=== PATIENT | female | born 1950 | race African-American/Black ===

== ENCOUNTER 2017-04-15 00:03 | Observation (INO) | payer MEDICARE ==
[2017-04-15 01:14] LABS: Troponin I 0.032 ng/mL (< 0.028)
[2017-04-15] MEDS ORDERED: Ondansetron HCl/PF 4 MG/2 ML Vial IVP PRN (02:52)
[2017-04-15] MEDS ORDERED: Calcium Carbonate 500 MG ChewTAB PO PRN (02:52)
[2017-04-15] MEDS ORDERED: Dextrose 5% in Water 1,000 ML IV PRN (02:52)
[2017-04-15] MEDS ORDERED: Acetaminophen 325 MG TAB PO PRN (02:52)
[2017-04-15] MEDS ORDERED: Dextrose 50% Abboject 50 ML SYRINGE SLOW IVP PRN (02:52)
[2017-04-15 03:43] VITALS: BMI 28.5
[2017-04-15] MEDS: Sodium Chloride 0.9% 1,000 ML IV SCH ×2 (03:48→20:46)
[2017-04-15 03:53] LABS: Anion Gap 12 mmol/L (10-20); BUN (Urea Nitrogen) 22 mg/dL (9.8-20.1); Calc. Creatinine Clearance 69 mL/min (70-130); Carbon Dioxide 25 mmol/L (23-31); Chloride 105 mmol/L (98-107); Estimated GFR-MDRD 69
[2017-04-15 03:57] LABS: Troponin I 0.035 ng/mL (< 0.028)
[2017-04-15] MEDS: HumaLOG 300 UNITS/3 ML VIAL SC PRN ×3 (06:14→20:51)
--- NOTE | 2017-04-15 06:20 | HP ---
CHIEF COMPLAINT: History of fall and hyperglycemia. HISTORY OF PRESENT ILLNESS: This is a 66-year-old pleasant lady who came into [facility] after a f all, because she had no electricity in her house. At the time of my interview, she says that she tr ied to get up on bias binding cutter to go to [facility] and because she could not see, she tripped and fell. She had another fall this evening and that is why she felt unsafe in her house and hence came into the hospital for further evaluation and treatment. Initially, the patient had a glucose of 44 1, which was treated with insulin at the [facility] and glucose fell to 290 in our hospital, right now it is 130. The patient does say that she has not been taking her blood pressure pills, her car diac pills, her sugar pills, and insulin for a long time because she fed up with [facility] they keep adjusting the medications without exactly talking to her and she says that the medicat ions actually make her feel bad. The patient lives alone and her friend visits with her on and off who helps her with day to day activities. The patient denies any fever, chills, shortness of breath , some mild chest pressure in the backside of the right breast, may be possibly because of the fall. She denies any fever, chills, nausea, or vomiting. PAST MEDICAL HISTORY: Significant for multiple falls, recent discharge from our hospital in 10/2016 after an extensive workup with a negative stress test, negative MRI, ejection fraction of 45%. 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 PAST SURGICAL HISTORY: Quadruple bypass in 09/2014, hysterectomy. PSYCHIATRIC HISTORY: Includes anxiety. SOCIAL HISTORY: Lives alone. Like mentioned above, has friend who comes and visits, has a child, b ut says that the child hardly visits; however, she denies any drug, tobacco, or alcohol use. FAMILY HISTORY: Negative for diabetes or hypertension. ALLERGIES: HYDROCODONE, METFORMIN, and NORCO. CURRENT MEDICATIONS: She takes none. REVIEW OF SYSTEMS: Significant for mild chest pressure and chronic left-sided weakness. Otherwise, no fever, no chills, no headache, no appetite, no hearing loss, no latencies. No cough, no shortne ss of breath. No diarrhea, dysuria, or polyuria. No memory or mood changes. No neck pain. PHYSICAL EXAMINATION: VITAL SIGNS: Patient's blood pressure is 140/68, pulse is 78, afebrile, respirations 18. GENERAL: Patient is lying in bed, right now in no apparent distress. HEENT: Atraumatic and normocephalic. Pupils equally round, react to light. Extraocular movements are intact. Mucous membranes are moist. NECK: Supple. No JVD. CHEST: Breath sounds. There are no rales or rhonchi. HEART: S1, S2. No murmurs or gallops. ABDOMEN: Soft, obese. EXTREMITIES: No cyanosis, clubbing, or edema. Distal pulses present. NEUROLOGIC: No cranial nerve deficits. Motor strength in the left arm is 4/5, right arm is 5/5, le ft lower extremities 4/5, and right lower extremities 5/5. SKIN: Warm to touch. LABORATORY DATA: WBC count is 5, hemoglobin is 12, potassium is 4.8, creatinine is 0.9, BUN is 21. LDL is 109. Urine shows 4+ bacteria, but no WBCs, negative nitrites and leukocyte esterase. ASSESSMENT AND PLAN: 1. Multiple falls because of lack of electricity and patient feeling unsafe. Patient will be admit dhara for observation. We will involve our experts of case management team in placing this patient so that she is in a safe environment. Meanwhile, we will do physical therapy, occupational therapy fo r this patient. 2. Dehydration secondary to hyperglycemia, secondary to noncompliance with medications for diabetes . We will do IV fluids. Glucose has already come down, we will do insulin sliding scale. We will optimize medications for glucose control with oral hypoglycemics this hospital stay. 3. Coronary artery disease, status post coronary artery bypass graft. We will put her back on meto prolol and lisinopril. 4. Hypertension. We will monitor that this hospital stay. 5. History of stroke with chronic left-sided hemiparesis, stable. 6. Hyperlipidemia. We will introduce statin therapy with Lipitor. 7. Systolic congestive heart failure, compensated with ejection fraction of 45%, stable. 8. Dehydration. We will gently hydrate the patient. I will work with the case management and furt her placing this patient in a safe environment. 9. Sequential compression devices for deep venous thrombosis prophylaxis.
[2017-04-15] MEDS: Docusate 100 MG CAP PO SCH ×2 (08:32→20:44)
[2017-04-15] MEDS ORDERED: Lisinopril 2.5 MG TAB PO SCH (09:00)
[2017-04-15] MEDS ORDERED: Famotidine 20 MG TAB PO SCH (09:00)
[2017-04-15] MEDS ORDERED: Metoprolol Tartrate 25 MG TAB PO SCH (09:00)
--- NOTE | 2017-04-15 10:04 | RAD ---
PORTABLE CHEST 1 VIEW: Date: 04/15/17 Time: 0809 hours HISTORY: Respiratory distress. FINDINGS: Comparison made with exam of 11/04/16. There are changes of median sternotomy. The heart size is borderline. There is continued elevation o f the right hemidiaphragm. No focal areas of consolidation, pneumothorax, luis alberto pulmonary edema, or pleural effusions are seen. IMPRESSION: No acute process. POS: [facility]
--- OUTSIDE RECORDS SUMMARY | 2017-04-15 10:21 | XMS | Clinical Summary ---
:1950 Author Organization [facility] Hospitalist Address [address] [place] [phone] Phone Care Team Providers Name Role Phone , Primary Care Provider Unavailable Allergies Not on File Current Medications Not on file Active Problems Not on file Social History Tobacco Use Types Packs/Day Years Used Date Never Assessed Sex Assigned at Date Recorded Not on file Last Filed Vital Signs Not on file Plan of Treatment Not on file Results Not on filefrom Last 3 Months
--- NOTE | 2017-04-15 10:29 | CT ---
HISTORY: Fall. Right-sided facial pain. TECHNIQUE: Axial images are obtained with coronal and sagittal reconstructions. FINDINGS: CT face demonstrates the paranasal sinuses to be well aerated. No evidence of a facial fracture is seen. The mandible and maxilla are intact. Bilateral carotid bulb vascular calcifications are seen . IMPRESSION: Unremarkable maxillofacial CT. POS: [facility]
[2017-04-15] MEDS ORDERED: traMADol HCl 50 MG TAB PO PRN (11:49)
[2017-04-15] MEDS ORDERED: Loratadine 10 MG TAB PO PRN (11:49)
--- NOTE | 2017-04-15 12:20 | PDOC.PN ---
- Subjective Encounter Start Date: 04/15/17 Encounter Start Time: 11:30 - Objective MAR Reviewed: Yes Vital Signs & Weight: Vital Signs (12 hours) Temp Pulse Resp BP BP Pulse Ox 04/15/17 11:00 98.3 F 55 L 16 131/64 100 04/15/17 07:43 98.4 F 77 18 04/15/17 07:18 98.8 F 77 16 138/76 97 04/15/17 04:08 98.4 F 77 18 04/15/17 02:38 98.4 F 77 18 167/72 H 100 Weight Weight 166 lb 8 oz Result Diagrams: 04/15/17 03:25 Additional Labs: Accuchecks 04/15/17 04/15/17 10:58 01:49 POC Glucose 200 H 192 H Phys Exam - Physical Examination Constitutional: NAD HEENT: moist MMs Respiratory: no wheezing, no rales, no rhonchi Cardiovascular: RRR, no significant murmur Gastrointestinal: soft, non-tender Neurological: moves all 4 limbs Psychiatric: normal affect, A&O x 3 Dx/Plan (1) DMII (diabetes mellitus, type 2) Status: Chronic Comment: Uncontrolled, resume home medications, patient still has some tresiba pens at home. (2) Recurrent falls while walking Code(s): R29.6 - REPEATED FALLS Status: Chronic Comment: mostly related to no lights at home at night, though occassionally falls during the day, no acute problems. Needs social support systems when she gets back home. (3) Coronary artery disease Code(s): I25.10 - ATHSCL HEART DISEASE OF [place] CORONARY ARTERY W/O ANG PCTRS Status: Chronic Comment: s/p bipass (4) Left hemiparesis Code(s): G81.94 - HEMIPLEGIA, UNSPECIFIED AFFECTING LEFT NONDOMINANT SIDE Status: Chronic Comment: from old stroke (5) Hypertension Code(s): I10 - ESSENTIAL (PRIMARY) HYPERTENSION Status: Chronic Comment: Resume home meds - Plan cont current plan of care walking program, attempt to arrange outpatient f/u, d/c home later today * . - Discharge Day Encounter end time: 12:20
[2017-04-15] MEDS: Metoprolol Tartrate 25 MG TAB PO SCH (20:45)
[2017-04-15] MEDS: Insulin Detemir 100 UNITS/ML 10 UNITS in Pre-Filled Syringe 1 EACH SC SCH (20:51)
[2017-04-15] MEDS ORDERED: Atorvastatin Calcium 40 MG TAB PO SCH (21:00)
[2017-04-16 05:30] LABS: Anion Gap 13 mmol/L (10-20); BUN (Urea Nitrogen) 22 mg/dL (9.8-20.1); Calc. Creatinine Clearance 70 mL/min (70-130); Calcium 9.1 mg/dL (7.8-10.44); Carbon Dioxide 22 mmol/L (23-31); Chloride 104 mmol/L (98-107); Estimated GFR-MDRD 70
[2017-04-16] MEDS: HumaLOG 300 UNITS/3 ML VIAL SC PRN (05:42)
[2017-04-16] MEDS: Docusate 100 MG CAP PO SCH (07:59)
[2017-04-16] MEDS: Metoprolol Tartrate 25 MG TAB PO SCH (07:59)
[2017-04-16] MEDS: Insulin Detemir 100 UNITS/ML 10 UNITS in Pre-Filled Syringe 1 EACH SC SCH (08:00)
[2017-04-16] MEDS ORDERED: Glimepiride 2 MG TAB PO SCH (08:00)
[2017-04-16] MEDS ORDERED: Lisinopril 2.5 MG TAB PO SCH (09:00)
[2017-04-16] MEDS ORDERED: Atorvastatin Calcium 40 MG TAB PO SCH (09:00)
[2017-04-16] MEDS ORDERED: Furosemide 20 MG TAB PO SCH (09:00)
[2017-04-16] MEDS ORDERED: Aspirin 325 MG TAB PO SCH (09:00)
--- NOTE | 2017-04-16 11:21 | PDOC.PN ---
- Subjective Encounter Start Date: 04/16/17 Encounter Start Time: 11:19 Ms. Smart does not have any complaints. - Objective MAR Reviewed: Yes Vital Signs & Weight: Vital Signs (12 hours) Temp Pulse Resp BP BP Pulse Ox 04/16/17 07:58 60 123/60 04/16/17 07:15 98.0 F 60 16 123/60 99 04/16/17 04:00 98 F 58 L 14 115/67 98 Weight Weight 166 lb 8 oz I&O: 04/15/17 04/16/17 04/17/17 06:59 06:59 06:59 Intake Total 500 480 Output Total 300 Balance 200 480 Result Diagrams: 04/16/17 04:10 Additional Labs: Accuchecks 04/16/17 04/16/17 04/15/17 06:47 05:37 20:49 POC Glucose 161 H 218 H 393 H Phys Exam - Physical Examination HEENT: PERRLA Respiratory: no wheezing, no rales, no rhonchi, clear to auscultation bilateral Cardiovascular: RRR, no significant murmur Gastrointestinal: soft, non-tender, positive bowel sounds Musculoskeletal: no edema Dx/Plan (1) Coronary artery disease Code(s): I25.10 - ATHSCL HEART DISEASE OF [place] CORONARY ARTERY W/O ANG PCTRS Status: Chronic Comment: s/p bipass (2) Hypertension Code(s): I10 - ESSENTIAL (PRIMARY) HYPERTENSION Status: Chronic Comment: Resume home meds (3) Diabetic neuropathy Code(s): E11.40 - TYPE 2 DIABETES MELLITUS WITH DIABETIC NEUROPATHY, UNSP Status: Acute (4) FTT (failure to thrive) in adult Status: Acute (5) Hyperglycemia due to type 2 diabetes mellitus Code(s): E11.65 - TYPE 2 DIABETES MELLITUS WITH HYPERGLYCEMIA Status: Acute Qualifiers: Diabetes mellitus terminal make up operator insulin use: with penitentiary use Qualified Code( s): E11.65 - Type 2 diabetes mellitus with hyperglycemia; Z79.4 - intermission coordinator ( current) use of insulin (6) DMII (diabetes mellitus, type 2) Status: Chronic Comment: Uncontrolled, resume home medications, patient still has some tresiba pens at home. (7) Dementia Code(s): F03.90 - UNSPECIFIED DEMENTIA WITHOUT BEHAVIORAL DISTURBANCE Status: Suspected Qualifiers: Dementia type: vascular dementia - Plan * DM- better controlled * HTN- blood pressure is stable * Frequent falls- possibly related to diabetic peripheral neuropathy * Continue PT/ OT * Stable for transfer to Rehab.
[2017-04-16 11:35] VITALS: BP 123/64; TEMP 98.5
--- NOTE | 2017-04-16 16:51 | DIS ---
DATE OF ADMISSION: 04/15/2017 DATE OF DISCHARGE: 04/16/2017 DISCHARGE DISPOSITION: To [facility]. DISCHARGE DIAGNOSES: 1. Frequent falls, possibly as a result of diabetic peripheral neuropathy in conjunction with visio n impairment. 2. Diabetes mellitus, uncontrolled. 3. Medical noncompliance. 4. Hypertension. 5. Chronic systolic heart failure. 6. History of coronary artery disease. 7. History of cerebral vascular disease with left-sided weakness. 8. History of diabetic nephropathy. DISCHARGE MEDICATIONS: Include Lopressor 12.5 mg twice a day, lisinopril 2.5 mg daily, Levemir 10 u nits subcu at bedtime, Amaryl 2 mg daily, Lasix 20 mg daily, Lipitor 40 mg daily, and aspirin 325 mg daily. PROCEDURES DONE DURING ADMISSION: The patient had a CT scan of the facial bones, which was unremark able. No evidence of any fracture. She had a chest x-ray showing no acute process. CODE STATUS: FULL CODE. ALLERGIES: HYDROCODONE, METFORMIN, and PREGABALIN. HOSPITAL COURSE: Ms. Smart is a pleasant 66-year-old female, who was brought to the emergency room a fter suffering several falls at home. She attributes that to visual impairment from lack of the lay ctricity in her home; therefore, it was dark and she was unable to see, this was likely exacerbated by diabetic peripheral neuropathy as well as previous left-sided stroke. She was brought in to [facility]. There is no evidence of acute infection. She did have the urine, which was positive for 4 + bacteria, but there was no white cells in the urine and she had no fever and there was no elevatio n in her white blood cell count systemically. Therefore, I suspect this is asymptomatic bacteriuria and with not need any treatment plus the patient did not give symptoms of dysuria or other urinary symptoms. She was evaluated by case management and arrangements were made for placement in to the [facility] unit and she is being transferred on 04/16/2017.
--- NOTE | 2017-04-23 13:44 | EKG ---
Test Reason : Blood Pressure : / mmHG Vent. Rate : 073 BPM Atrial Rate : 073 BPM P-R Int : 158 ms QRS Dur : 114 ms QT Int : 450 ms P-R-T Axes : 056 -52 083 degrees QTc Int : 495 ms Normal sinus rhythm Possible Left atrial enlargement Left axis deviation Incomplete right bundle branch block Inferior infarct , age undetermined Anterolateral infarct , age undetermined Abnormal ECG Confirmed by ARINA BEAR, MARSHA ([id number]), general expeditor CATHLEEN POSADA ([id number]) on 04/23/2017 1:43:45 PM Referred By: ARINA Confirmed By:MARSHA SANTA MD
== END 2017-04-16 14:03 ==
LOC: ERS 00:03 → 2SW 01:41
PROVIDERS: ADMIT Internal Medicine; ATTEND Internal Medicine
DX: R29.6 Repeated falls (principal); E11.65 Type 2 diabetes mellitus with hyperglycemia; E11.42 Type 2 diabetes mellitus with diabetic polyneuropathy; E11.21 Type 2 diabetes mellitus with diabetic nephropathy; I69.954 Hemiplegia and hemiparesis following unspecified cerebrovascular disease affecting left non-dominant side; I11.0 Hypertensive heart disease with heart failure; I50.22 Chronic systolic (congestive) heart failure; I25.10 Atherosclerotic heart disease of native coronary artery without angina pectoris; K21.9 Gastro-esophageal reflux disease without esophagitis; M81.0 Age-related osteoporosis without current pathological fracture; F41.9 Anxiety disorder, unspecified; E86.0 Dehydration; Z91.14 Patient's other noncompliance with medication regimen; Z79.4 Long term (current) use of insulin; Z79.82 Long term (current) use of aspirin; Z79.899 Other long term (current) drug therapy; Z88.5 Allergy status to narcotic agent; Z88.8 Allergy status to other drugs, medicaments and biological substances; Z95.1 Presence of aortocoronary bypass graft; Z90.710 Acquired absence of both cervix and uterus
CPT/HCPCS: 70486; 71010; 80048 ×2; 82962 ×2; 84484 ×2; 87077; 87086; 87186; 93005; 96360; 96361; 97139 ×3; 99285; G0378; G8978; G8979; 36415; 36416; J1815

== ENCOUNTER 2017-08-05 19:32 | Emergency (ER) | payer MEDICARE ==
[2017-08-05 20:59] LABS: #Basophils 0.1 thou/uL (0.0-0.2); #Eosinphils 0.2 thou/uL (0.0-0.7); #Lymphocytes 2.2 thou/uL (1.20-3.40); #Monocytes 0.5 thou/uL (0.11-0.59); #Neutrophils 4.6 thou/uL (1.40-6.50); %Basophils 0.9 % (0.0-1.0); %Lymphocytes 29.5 % (21.0-51.0); %Monocytes 6.2 % (0.0-10.0); %Neutrophils 61.3 % (42.0-75.0); Hemoglobin 13.3 g/dL (12.0-16.0); Mean Corpuscular HGB CONC 33.1 g/dL (32.0-36.0); Mean Corpuscular Hemoglobin 28.6 pg (27.0-31.0); Mean Corpuscular Volume 86.3 fl (81.0-99.0); Mean Platelet Volume 6.5 fL (7.4-10.4); Platelet Count 296 thou/uL (130-400); RBC Distribution Width 11.3 % (11.5-14.5); Red Blood Cell (RBC) Count 4.66 mill/uL (4.20-5.40); White Blood Cell (WBC) Count 7.5 thou/uL (4.8-10.8)
[2017-08-05 21:21] LABS: Acetaminophen Less than 6.0 mcg/mL (10.0-30.0); Alcohol Less than 10 mg/dL (Less than 10); Salicylate Less than 8.0 mg/dL (15.0-30.0)
[2017-08-05 21:23] LABS: ALT (SGPT) 13 U/L (8-55); AST (SGOT) 17 U/L (5-34); Albumin 3.9 g/dL (3.4-4.8); Alkaline Phosphatase 55 U/L (40-150); Anion Gap 16 mmol/L (10-20); BUN (Urea Nitrogen) 35 mg/dL (9.8-20.1); Bilirubin, Total 0.4 mg/dL (0.2-1.2); CK (CPK) 156 U/L (29-168); Calc. Creatinine Clearance 0 mL/min (70-130); Calcium 9.4 mg/dL (7.8-10.44); Carbon Dioxide 24 mmol/L (23-31); Chloride 105 mmol/L (98-107); Estimated GFR-MDRD 40; Glucose 133 mg/dL (80-115); Lipase 14 U/L (8-78); Potassium 3.6 mmol/L (3.5-5.1); Protein, Total 6.9 g/dL (6.0-8.3); Sodium 141 mmol/L (136-145)
[2017-08-05 21:27] LABS: CKMB 3.2 ng/mL (0-6.6); Troponin I 0.049 ng/mL (< 0.028)
--- NOTE | 2017-08-05 21:53 | RAD ---
FRONTAL VIEW CHEST 08/05/17 INDICATION: Altered mental status. FINDINGS: The cardiac silhouette is enlarged. Evidence of prior sternotomy. No lobar consolidation. Elevation o f the right hemidiaphragm. There is vascular calcification. IMPRESSION: Enlarged cardiac silhouette. No lobar consolidation. POS: [facility]
--- NOTE | 2017-08-05 22:35 | CT ---
CT OF HEAD NONCONTRAST 08/05/17 CLINICAL HISTORY: Altered mental status. Reference made to 11/05/16 brain MRI. FINDINGS: Moderate sized posterior right cerebral hemisphere encephalomalacia is redemonstrated. There is no in tracranial hemorrhage, mass effect or midline shift. Ventricular system is grossly stable in size. Im aged paranasal sinuses are clear. Moderate chronic microvascular ischemic disease is present. There is a remote appearing lacunar infarction of the left cerebellar hemisphere. Small area of encephaloma lacia is seen at the left occipital lobe. IMPRESSION: No acute intracranial abnormality is identified. Chronic intracranial findings are discussed above. POS: [facility]
[2017-08-05 23:33] LABS: Bilirubin Small (Negative); Blood, Urine Negative (Negative); Clarity CLOUDY (Clear); Glucose, Urine (Dipstick) >=1000 mg/dL (Negative); Leukocyte Negative (Negative); Nitrite Negative (Negative); Protein, Urine (Dipstick) 30 mg/dL (Neg-Trace); Specific Gravity, Urine 1.028 (1.002-1.036)
[2017-08-05 23:35] LABS: Bacteria/HPF None Seen HPF (None Seen); Pathc Cast-AUWi Flag 2.16 (0-2.49); RBC/HPF 0-3 HPF (0-3); Squamous Epithelial 0-3 HPF (0-3); WBC/HPF 0-3 HPF (0-3)
[2017-08-05 23:40] LABS: Hyaline Casts/LPF 0-3 HYALINE CAST LPF (0-3 Hyaline)
[2017-08-05 23:42] LABS: Amphetamine Not Detected (NotDetected); Barbiturates Screen Not Detected (NotDetected); Benzodiazepine Screen Not Detected (NotDetected); Cocaine Metabolite Screen Not Detected (NotDetected); Medtox Control Line Valid? VALID (VALID); Medtox Reader # READER 4; Methadone Not Detected (NotDetected); Methamphetamine Not Detected (NotDetected); Opiate Screen Not Detected (NotDetected); Oxycodone Screen Not Detected (NotDetected); Phencyclidine (PCP) Not Detected (NotDetected); THC/Cannabinoid Screen Not Detected (NotDetected); Tricyclic Screen Not Detected (NotDetected)
--- NOTE | 2017-08-13 17:46 | EKG ---
Test Reason : Blood Pressure : / mmHG Vent. Rate : 069 BPM Atrial Rate : 069 BPM P-R Int : 178 ms QRS Dur : 116 ms QT Int : 522 ms P-R-T Axes : 016 -48 073 degrees QTc Int : 559 ms Normal sinus rhythm Possible Left atrial enlargement Left axis deviation Left ventricular hypertrophy with QRS widening Inferior infarct , age undetermined Anterolateral infarct , age undetermined Prolonged QT Abnormal ECG Confirmed by PEPE BEAR, LACEY ([id number]), publications editor CATHLEEN POSADA ([id number]) on 08/13/2017 5:45:56 PM Referred By: Confirmed By:LACEY CANTU MD
== END 2017-08-06 01:43 | disposition home or self-care (01) ==
LOC: ERS 19:32
DX: R79.89 Other specified abnormal findings of blood chemistry (principal); R53.1 Weakness; Z86.73 Personal history of transient ischemic attack (TIA), and cerebral infarction without residual deficits; K21.9 Gastro-esophageal reflux disease without esophagitis; E11.9 Type 2 diabetes mellitus without complications; E78.5 Hyperlipidemia, unspecified; F41.9 Anxiety disorder, unspecified; I10 Essential (primary) hypertension
CPT/HCPCS: 36415; 51701; 70450; 71045; 80053; 80306; 80307; 81003; 81015; 82140; 82553; 83690; 83880; 84146; 84443; 84484; 85025; 93005; A4353